=== PATIENT | female | born 1985 | race Caucasian/White ===

== ENCOUNTER 2016-09-13 19:18 | Emergency (ER) | payer OTHER ==
[~2016-09-13] VITALS: Ht 149.9 cm; Wt 56.8 kg
[2016-09-13] MEDS ORDERED: CIPR0.3S OU ×2 (20:14→20:33)
[2016-09-13] MEDS ORDERED: CIPROFLOXACIN 0.3% OPHTH SOLN 2.5ML OU ONE (20:15)
[2016-09-13 20:36] VITALS: BP 113/78
== END 2016-09-13 21:03 | disposition home or self-care (01) ==
LOC: M ED 19:18
DX: H10.33 Unspecified acute conjunctivitis, bilateral (principal)